=== PATIENT | female | born 1945 | race Caucasian/White ===

== ENCOUNTER → 2017-03-14 | Outpatient (CLI) | payer MEDICARE, OTHER ==
--- NOTE | 2017-03-14 13:04 | RAD ---
CT scan of the chest without contrast 03/14/2017 Clinical history: History of lung nodules. Technique: Unenhanced, contiguous, 1 mm axial sections were obtained through the chest and upper abdomen. One or more of the following individualized dose reduction techniques were utilized for this study: 1. Automated exposure control. 2. Adjustment of the mA and/or kV according to patient size. 3. Use of iterative reconstruction technique. Findings: No previous imaging studies are available for comparison. The heart is normal in size. Scattered atherosclerotic plaque formation is seen involving the thoracic aorta and its branches along with the coronary arteries. The thoracic aorta tapers normally. Small calcified right hilar and mediastinal lymph nodes are seen. Calcified granulomas are seen involving both upper lobes. These measure 3 mm to 9 mm in size. No noncalcified pulmonary nodule is seen. No acute pulmonary infiltrate is noted. No pneumothorax or pleural effusion is seen. Images through the upper abdomen demonstrate atherosclerotic calcification of the abdominal aorta and its branches. Degenerative changes are seen throughout the thoracic spine. Impression: Findings are seen consistent with prior granulomatous disease. No noncalcified pulmonary nodule is seen.
== END | disposition home or self-care (01) ==
LOC: CT 10:26
PROVIDERS: ATTEND General Practice
DX: R91.1 Solitary pulmonary nodule (principal)
CPT/HCPCS: 71250

== ENCOUNTER → 2018-04-06 | Outpatient (CLI) | payer MEDICARE, OTHER ==
[2018-04-07 06:09] LABS: ESTRADIOL LEVEL 51.6 pg/mL (.); PROGESTERONE 5.6 ng/mL (.); T3 TOTAL 81 ng/dL (71-180); TESTOSTERONE TOTAL 5 ng/dL (3-41); THYROXINE 6.2 ug/dL (4.5-12.0)
[2018-04-09 12:08] LABS: DHEA 100 ng/dL (31-701)
== END | disposition home or self-care (01) ==
LOC: LAB 14:47
PROVIDERS: ATTEND General Practice
DX: E03.9 Hypothyroidism, unspecified (principal); N95.1 Menopausal and female climacteric states; D51.9 Vitamin B12 deficiency anemia, unspecified
CPT/HCPCS: 36415; 82607; 82670; 82679; 82746; 84144; 84403; 84436; 84443; 84480

== ENCOUNTER → 2018-09-14 | Outpatient (CLI) | payer MEDICARE, OTHER ==
[2018-09-14 13:26] LABS: BASO % 1 % (0-3); EOS # 0.1 x10^3/uL (0.0-0.7); EOS % 1 % (0-3); HEMATOCRIT 42.8 % (36.0-47.0); HEMOGLOBIN 14.5 g/dL (12.0-15.5); LYMPH # 1.8 x10^3/uL (1.0-4.8); LYMPH % 24 % (24-48); MEAN CORPUSCULAR HEMOGLOBIN 35 pg (25-35); MEAN CORPUSCULAR HGB CONC 34 g/dL (31-37); MEAN CORPUSCULAR VOLUME 103 fL (79-100); MONO # 0.4 x10^3/uL (0.0-1.1); MONO % 5 % (0-9); NEUT # 5.1 x10^3uL (1.8-7.7); NEUT % 69 % (31-73); PLATELET COUNT 191 x10^3/uL (140-400); RED BLOOD COUNT 4.16 x10^6/uL (3.50-5.40); RED CELL DISTRIBUTION WIDTH 12.2 % (11.5-14.5); WHITE BLOOD COUNT 7.3 x10^3/uL (4.0-11.0)
[2018-09-14 13:48] LABS: ALBUMIN 3.7 g/dL (3.4-5.0); ALBUMIN/GLOBULIN RATIO 1.1 (1.0-1.7); C REACTIVE PROTEIN 0.9 mg/L (0-3.3); CALCIUM 9.5 mg/dL (8.5-10.1); CREATININE 0.7 mg/dL (0.6-1.0); TOTAL BILIRUBIN 0.7 mg/dL (0.2-1.0); TOTAL PROTEIN 7.1 g/dL (6.4-8.2)
[2018-09-15 01:11] LABS: HEMOGLOBIN A1C 5.2 % (4.8-5.6)
[2018-09-15 04:08] LABS: T3 TOTAL 96 ng/dL (71-180); THYROXINE 7.3 ug/dL (4.5-12.0)
[2018-09-15 05:13] LABS: ESTRADIOL LEVEL 92.5 pg/mL (.); PROGESTERONE 11.6 ng/mL (.); TESTOSTERONE TOTAL 45 ng/dL (3-41)
[2018-09-15 07:18] LABS: HOMOCYTSINE LEVEL 8.3 umol/L (0.0-15.0)
[2018-09-15 11:13] LABS: INSULIN LEVEL 12.8 uIU/mL (2.6-24.9)
[2018-09-15 13:35] LABS: THYROID STIM HORMONE (TSH) 1.65 uIU/mL (0.358-3.740)
[2018-09-16 22:07] LABS: DHEA 301 ng/dL (31-701)
== END | disposition home or self-care (01) ==
LOC: LAB 11:36
PROVIDERS: ATTEND General Practice
DX: E03.9 Hypothyroidism, unspecified (principal); E72.11 Homocystinuria; N95.1 Menopausal and female climacteric states; I10 Essential (primary) hypertension; R53.83 Other fatigue; E55.9 Vitamin D deficiency, unspecified; D51.9 Vitamin B12 deficiency anemia, unspecified; E78.5 Hyperlipidemia, unspecified
CPT/HCPCS: 36415; 80053; 80061; 82306; 82607; 82626; 82670; 82679; 82746; 83036; 83090; 83525; 84144; 84403; 84436; 84443; 84480; 85025; 86140

== ENCOUNTER → 2020-05-11 | Outpatient (CLI) | payer MEDICARE, OTHER ==
--- NOTE | 2020-05-11 12:50 | RAD ---
EXAM: Dual energy x-ray absorptiometry (DEXA). HISTORY: Postmenopausal female presents for osteoporosis screening. COMPARISON: 04/09/2005. TECHNIQUE: Dual energy x-ray absorptiometry of the lumbar spine and right hip was performed. Calculation of bone mineral density based on standard deviations above or below the expected young adult normal value (T-score) was completed. FINDINGS: The average bone mineral density in the 1st through 4th lumbar vertebrae is 1.335 g/cmxcm, corresponding with a T-score of 1.3. There is an a 5.0% increase in density of the lumbar spine compared to a study dated 04/09/2005. The average total bone mineral density in the right hip is 1.073 g/cmxcm, corresponding with a T-score of 1.0. There is been a 0.7% decrease in density of the right hip compared to a study dated 04/09/2005. IMPRESSION: Normal bone mineral density. Note: Definitions established by the [employer] Organization: 1. Normal: T-score is -1.0 or above. 2. Osteopenia: T-score is between -1.0 and -2.5 . 3. Osteoporosis: T-score is -2.5 or below. Electronically signed by: Elham Christie MD (05/11/2020 12:47 PM) [id number]
== END | disposition home or self-care (01) ==
LOC: DXRAD 10:43
PROVIDERS: ATTEND Family Medicine
DX: N95.1 Menopausal and female climacteric states (principal); M81.0 Age-related osteoporosis without current pathological fracture
CPT/HCPCS: 77080

== ENCOUNTER → 2020-10-05 | Outpatient (CLI) | payer MEDICARE, OTHER ==
--- NOTE | 2020-10-05 14:14 | RAD ---
EXAM: Head and cervical spine CT without contrast. HISTORY: Fall. TECHNIQUE: Computed tomographic images of the head and cervical spine were obtained without contrast. COMPARISON: None. FINDINGS: Head: There is a heterogeneous mass with predominant peripheral calcifications within the lela. This measures approximately 2.4 cm. There is no acute hemorrhage. This demonstrates internal hyperdensity possibly due to a component of blood products. There is no mass effect or midline shift. There is no hydrocephalus. The umanzor-white matter differentiation pattern is intact. There is no suspicious calvarial lesion. The orbits and visualized paranasal sinuses mastoid air cells are unremarkable. Cervical spine: There is mild anterolisthesis of C3 on C4 and C2 on C3. There is multilevel endplate remodeling with disc space narrowing and osteophytosis, primarily at C4-C5, C5-C6 and C6-C7. There are osseous hemangiomas. There are several bone islands. There is advanced degenerative change resulting in fusion of the left facet joints at C3-C4. The combination of degenerative changes results in mild left foraminal stenosis at C2-C3, moderate right and severe left foraminal stenosis at C3-C4, moderate right and moderate to severe left foraminal stenosis at C4-C5, severe bilateral foraminal stenosis at C5-C6, and moderate left foraminal and mild central canal stenosis at C6-C7. IMPRESSION: 1. 2.4 cm mass with partial peripheral calcifications within the lela to left of midline. The imaging appearance favors an intraparenchymal lesion. However, the possibility of an extra-axial mass or large aneurysm is not excluded on this noncontrast exam. This can be better assessed with a brain MRI with and without contrast. 2. Multilevel degenerative change throughout the cervical spine, resulting in significant stenosis at the aforementioned levels. There is no evidence of acute cervical spine or intracranial trauma. Electronically signed by: Elham Christie MD (10/05/2020 2:11 PM) [id number]
== END ==
LOC: RAD 12:36
PROVIDERS: ATTEND Family Medicine
DX: M47.812 Spondylosis without myelopathy or radiculopathy, cervical region (principal); M48.02 Spinal stenosis, cervical region; M43.12 Spondylolisthesis, cervical region; M43.22 Fusion of spine, cervical region; M25.78 Osteophyte, vertebrae; R22.0 Localized swelling, mass and lump, head
CPT/HCPCS: 70450; 72125

== ENCOUNTER → 2021-11-06 | Outpatient (CLI) | payer MEDICARE, OTHER ==
--- NOTE | 2021-11-07 12:12 | RAD ---
EXAM: XR FEMUR, XR PELVIS 1-2V, XR ABDOMEN 1V 11/06/2021 2:13 PM CLINICAL INDICATION: Bilateral hip and knee pain, pelvic pain, belly and back pain COMPARISON: None available FINDINGS: Bilateral femurs: No acute fracture. Alignment at the knees is maintained. There is mild degenerative joint disease of the hips, greater on the left. Probable moderate joint space narrowing of the knees . Pelvis: No acute fracture or malalignment. There is mild degenerative joint disease of the hips, grea ter on the left. Pubic symphysis and sacroiliac joints are unremarkable. There is lower lumbar degene rative disc disease. Phleboliths are seen in the pelvis. Abdomen: Bowel gas pattern is nonspecific and nonobstructive. Normal volume of stool. There is mild l eftward curvature the lumbar spine. Moderate degenerative disc disease at L3-L4 and L4-L5. IMPRESSION: 1. No acute osseous abnormality of the bilateral femurs or pelvis. 2. Mild degenerative joint disease of the hips, greater on the left. 3. No acute abnormality in the abdomen. Electronically signed by: Gwen Markham MD (11/07/2021 12:09 PM) [id number]
== END ==
LOC: RAD 14:00
PROVIDERS: ATTEND Family Medicine
DX: M17.0 Bilateral primary osteoarthritis of knee (principal); M25.861 Other specified joint disorders, right knee; M25.862 Other specified joint disorders, left knee; M51.36 Other intervertebral disc degeneration, lumbar region; M43.8X6 Other specified deforming dorsopathies, lumbar region
CPT/HCPCS: 72170; 74018; 73552-50